=== PATIENT | female | born 1990 | race Caucasian/White ===

== ENCOUNTER → 2022-01-01 | Outpatient (CLI) | payer BC ==
[2022-01-01 17:12] LABS: RED BLOOD COUNT 4.64 M/UL (4.00-5.10); WHITE BLOOD COUNT 8.5 K/UL (4.5-11.0)
== END ==
LOC: LAB 16:40
PROVIDERS: Internal Medicine Critical Care Medicine
DX: J02.9 Acute pharyngitis, unspecified (principal); R53.83 Other fatigue; R53.81 Other malaise; H92.09 Otalgia, unspecified ear
CPT/HCPCS: 36415; 84443; 85025; 86403; 87081; 87880